=== PATIENT | male | born 1935 | race Two or more races ===

== ENCOUNTER 2016-09-17 13:18 | Outpatient (CLI) | payer MEDICARE, BC ==
[~2016-09-17 13:18] MED LIST: WARF4TAB6 PO
== END 2016-09-17 23:59 | disposition home health service (06) ==
LOC: WOU 13:18
PROVIDERS: ATTEND Podiatrist Foot & Ankle Surgery
DX: T87.81 Dehiscence of amputation stump (principal); I70.262 Atherosclerosis of native arteries of extremities with gangrene, left leg; L97.523 Non-pressure chronic ulcer of other part of left foot with necrosis of muscle; L89.623 Pressure ulcer of left heel, stage 3; C90.01 Multiple myeloma in remission; R60.0 Localized edema; Z86.718 Personal history of other venous thrombosis and embolism; Z86.73 Personal history of transient ischemic attack (TIA), and cerebral infarction without residual deficits; Z79.01 Long term (current) use of anticoagulants; Z79.899 Other long term (current) drug therapy; I10 Essential (primary) hypertension
CPT/HCPCS: 11044; 11047; A6253; A6402

== ENCOUNTER 2016-09-20 13:05 | Outpatient (CLI) | payer MEDICARE, BC | END 2016-09-20 23:59 | disposition home health service (06) | LOC: WOU 13:05 | PROVIDERS: ATTEND Podiatrist Foot & Ankle Surgery | DX: L89.623 Pressure ulcer of left heel, stage 3 (principal); I70.262 Atherosclerosis of native arteries of extremities with gangrene, left leg; L97.521 Non-pressure chronic ulcer of other part of left foot limited to breakdown of skin; Z85.828 Personal history of other malignant neoplasm of skin; I35.8 Other nonrheumatic aortic valve disorders; Z79.01 Long term (current) use of anticoagulants; C90.00 Multiple myeloma not having achieved remission; Z79.899 Other long term (current) drug therapy; Z86.718 Personal history of other venous thrombosis and embolism; Z86.73 Personal history of transient ischemic attack (TIA), and cerebral infarction without residual deficits | CPT/HCPCS: 11042; 11045; 97606; A6402 ==

== ENCOUNTER 2016-09-24 08:35 | Outpatient (CLI) | payer MEDICARE, BC | END 2016-09-24 23:59 | disposition home health service (06) | LOC: EDBD → WOU 08:35 | PROVIDERS: ATTEND Podiatrist Foot & Ankle Surgery | DX: L89.624 Pressure ulcer of left heel, stage 4 (principal); I70.262 Atherosclerosis of native arteries of extremities with gangrene, left leg; L97.524 Non-pressure chronic ulcer of other part of left foot with necrosis of bone; Z86.718 Personal history of other venous thrombosis and embolism; Z79.01 Long term (current) use of anticoagulants; I35.8 Other nonrheumatic aortic valve disorders; Z79.899 Other long term (current) drug therapy; Z95.0 Presence of cardiac pacemaker; Z87.891 Personal history of nicotine dependence; C90.01 Multiple myeloma in remission; Z99.3 Dependence on wheelchair | CPT/HCPCS: 11043; 11044; 11047; A6402 ==

== ENCOUNTER 2016-10-01 13:04 | Emergency (ER) | payer MEDICARE, BC ==
[2016-10-01] MEDS ORDERED: IV SET PRIMARY 1 EA INFUS.SET MC ONE (13:57)
[2016-10-01] MEDS ORDERED: IV NS 0.9% 1,000 ML ONE (13:57)
[2016-10-01] MEDS ORDERED: IV NS 0.9% 1,000 ML BAG IV ONE (14:00)
== END 2016-10-01 15:46 | disposition left against medical advice (07) ==
DX: R55 Syncope and collapse (principal); E86.0 Dehydration; D64.9 Anemia, unspecified; R79.89 Other specified abnormal findings of blood chemistry; G40.909 Epilepsy, unspecified, not intractable, without status epilepticus; I50.9 Heart failure, unspecified; Z95.0 Presence of cardiac pacemaker; Z79.01 Long term (current) use of anticoagulants; Z85.79 Personal history of other malignant neoplasms of lymphoid, hematopoietic and related tissues
CPT/HCPCS: 36415; 70450; 71010; 80048; 80076; 82962; 83735; 84484; 85025; 85730; 93005; 96360; 99285; A4606; J7030

== ENCOUNTER 2016-10-01 15:45 | Outpatient (CLI) | payer MEDICARE, BC | END 2016-10-01 23:59 | disposition home health service (06) | LOC: EDBD → WOU 15:45 | PROVIDERS: ATTEND Podiatrist Foot & Ankle Surgery | DX: L89.624 Pressure ulcer of left heel, stage 4 (principal); I70.262 Atherosclerosis of native arteries of extremities with gangrene, left leg; L97.523 Non-pressure chronic ulcer of other part of left foot with necrosis of muscle; Z87.891 Personal history of nicotine dependence; Z86.73 Personal history of transient ischemic attack (TIA), and cerebral infarction without residual deficits; Z85.828 Personal history of other malignant neoplasm of skin; Z86.718 Personal history of other venous thrombosis and embolism; Z79.01 Long term (current) use of anticoagulants; I35.8 Other nonrheumatic aortic valve disorders; Z79.899 Other long term (current) drug therapy; Z95.5 Presence of coronary angioplasty implant and graft; Z95.0 Presence of cardiac pacemaker; C90.01 Multiple myeloma in remission | CPT/HCPCS: 11042; 11043; A6209; A6402 ==

== ENCOUNTER 2016-10-08 11:31 | Outpatient (CLI) | payer MEDICARE, BC | END 2016-10-08 23:59 | disposition home health service (06) | LOC: WOU 11:31 | PROVIDERS: ATTEND Podiatrist Foot & Ankle Surgery | DX: L89.624 Pressure ulcer of left heel, stage 4 (principal); I70.245 Atherosclerosis of native arteries of left leg with ulceration of other part of foot; L97.524 Non-pressure chronic ulcer of other part of left foot with necrosis of bone; Z95.5 Presence of coronary angioplasty implant and graft; Z95.0 Presence of cardiac pacemaker; I35.8 Other nonrheumatic aortic valve disorders; Z79.01 Long term (current) use of anticoagulants; C90.00 Multiple myeloma not having achieved remission; Z79.899 Other long term (current) drug therapy; Z86.718 Personal history of other venous thrombosis and embolism; T81.31XD Disruption of external operation (surgical) wound, not elsewhere classified, subsequent encounter | CPT/HCPCS: 11044; 11047; 97605; A6209; A6402; A6253 ==

== ENCOUNTER 2016-10-15 13:08 | Outpatient (CLI) | payer MEDICARE, BC | END 2016-10-15 23:59 | disposition home health service (06) | LOC: WOU 13:08 | PROVIDERS: ATTEND Podiatrist Foot & Ankle Surgery | DX: L89.624 Pressure ulcer of left heel, stage 4 (principal); I70.245 Atherosclerosis of native arteries of left leg with ulceration of other part of foot; L97.524 Non-pressure chronic ulcer of other part of left foot with necrosis of bone; C90.01 Multiple myeloma in remission; R60.0 Localized edema; Z87.891 Personal history of nicotine dependence; Z86.718 Personal history of other venous thrombosis and embolism; Z79.01 Long term (current) use of anticoagulants; I35.8 Other nonrheumatic aortic valve disorders; Z95.0 Presence of cardiac pacemaker; Z95.5 Presence of coronary angioplasty implant and graft; Z89.432 Acquired absence of left foot | CPT/HCPCS: 11042; 15275; A6209; A6402 ×2; Q4110 ==

== ENCOUNTER 2016-10-22 13:15 | Outpatient (CLI) | payer MEDICARE, BC | END 2016-10-22 23:59 | disposition home or self-care (01) | LOC: WOU 13:15 | PROVIDERS: ATTEND Podiatrist Foot & Ankle Surgery | DX: T87.81 Dehiscence of amputation stump (principal); I70.262 Atherosclerosis of native arteries of extremities with gangrene, left leg; L97.524 Non-pressure chronic ulcer of other part of left foot with necrosis of bone; L89.624 Pressure ulcer of left heel, stage 4; Z89.432 Acquired absence of left foot; C90.01 Multiple myeloma in remission; R60.0 Localized edema; Z87.891 Personal history of nicotine dependence; Z86.718 Personal history of other venous thrombosis and embolism; I35.8 Other nonrheumatic aortic valve disorders; Z79.01 Long term (current) use of anticoagulants; Z79.899 Other long term (current) drug therapy; Z86.73 Personal history of transient ischemic attack (TIA), and cerebral infarction without residual deficits | CPT/HCPCS: 11042; 11044; 11047; 97605-TC; A6402 ==

== ENCOUNTER 2016-10-29 13:13 | Outpatient (CLI) | payer MEDICARE, BC | END 2016-10-29 23:59 | disposition home health service (06) | LOC: WOU 13:13 | PROVIDERS: ATTEND Podiatrist Foot & Ankle Surgery | DX: L89.624 Pressure ulcer of left heel, stage 4 (principal); I70.262 Atherosclerosis of native arteries of extremities with gangrene, left leg; L97.524 Non-pressure chronic ulcer of other part of left foot with necrosis of bone; C90.01 Multiple myeloma in remission; R60.0 Localized edema; Z87.891 Personal history of nicotine dependence; Z86.718 Personal history of other venous thrombosis and embolism; Z86.73 Personal history of transient ischemic attack (TIA), and cerebral infarction without residual deficits; I35.8 Other nonrheumatic aortic valve disorders; Z79.01 Long term (current) use of anticoagulants; Z85.828 Personal history of other malignant neoplasm of skin | CPT/HCPCS: 11042; 15275; 97605-TC; A6402 ==

== ENCOUNTER 2016-11-12 13:05 | Outpatient (CLI) | payer MEDICARE, BC | END 2016-11-12 23:59 | disposition home health service (06) | LOC: WOU 13:05 | PROVIDERS: ATTEND Podiatrist Foot & Ankle Surgery | DX: I70.244 Atherosclerosis of native arteries of left leg with ulceration of heel and midfoot (principal); L97.424 Non-pressure chronic ulcer of left heel and midfoot with necrosis of bone; L89.624 Pressure ulcer of left heel, stage 4; C90.01 Multiple myeloma in remission; T81.31XD Disruption of external operation (surgical) wound, not elsewhere classified, subsequent encounter; R60.0 Localized edema; Z89.432 Acquired absence of left foot; Z86.73 Personal history of transient ischemic attack (TIA), and cerebral infarction without residual deficits; Z86.718 Personal history of other venous thrombosis and embolism; Z87.891 Personal history of nicotine dependence; I35.8 Other nonrheumatic aortic valve disorders; Z79.01 Long term (current) use of anticoagulants; Z95.5 Presence of coronary angioplasty implant and graft | CPT/HCPCS: 11042; 15275; A6402; Q4110 ==

== ENCOUNTER 2016-11-19 12:50 | Outpatient (CLI) | payer MEDICARE, BC | END 2016-11-19 23:59 | disposition home health service (06) | LOC: WOU 12:50 | PROVIDERS: ATTEND Surgery | DX: I70.262 Atherosclerosis of native arteries of extremities with gangrene, left leg (principal); L97.524 Non-pressure chronic ulcer of other part of left foot with necrosis of bone; R60.0 Localized edema; L89.624 Pressure ulcer of left heel, stage 4; Z86.73 Personal history of transient ischemic attack (TIA), and cerebral infarction without residual deficits; Z86.718 Personal history of other venous thrombosis and embolism; C90.00 Multiple myeloma not having achieved remission; Z79.01 Long term (current) use of anticoagulants; Z79.899 Other long term (current) drug therapy; I35.8 Other nonrheumatic aortic valve disorders; Z85.828 Personal history of other malignant neoplasm of skin; Z95.0 Presence of cardiac pacemaker; Z95.5 Presence of coronary angioplasty implant and graft; I74.3 Embolism and thrombosis of arteries of the lower extremities | CPT/HCPCS: 11044; 97605-TC; A6253; A6402 ==

== ENCOUNTER 2016-11-26 12:55 | Outpatient (CLI) | payer MEDICARE, BC | END 2016-11-26 23:59 | disposition home health service (06) | LOC: WOU 12:55 | PROVIDERS: ATTEND Podiatrist Foot & Ankle Surgery | DX: L89.624 Pressure ulcer of left heel, stage 4 (principal); I70.262 Atherosclerosis of native arteries of extremities with gangrene, left leg; L97.524 Non-pressure chronic ulcer of other part of left foot with necrosis of bone; Z87.891 Personal history of nicotine dependence; Z86.73 Personal history of transient ischemic attack (TIA), and cerebral infarction without residual deficits; Z86.718 Personal history of other venous thrombosis and embolism; C90.00 Multiple myeloma not having achieved remission; Z79.01 Long term (current) use of anticoagulants; Z79.899 Other long term (current) drug therapy; I35.8 Other nonrheumatic aortic valve disorders; Z85.828 Personal history of other malignant neoplasm of skin; Z95.0 Presence of cardiac pacemaker; Z95.5 Presence of coronary angioplasty implant and graft; I74.3 Embolism and thrombosis of arteries of the lower extremities | CPT/HCPCS: 11044; 11047; 97605; A6402 ==

== ENCOUNTER 2016-12-03 12:45 | Outpatient (CLI) | payer MEDICARE, BC | END 2016-12-03 23:59 | disposition home health service (06) | LOC: WOU 12:45 | PROVIDERS: ATTEND Surgery | DX: I70.262 Atherosclerosis of native arteries of extremities with gangrene, left leg (principal); L97.524 Non-pressure chronic ulcer of other part of left foot with necrosis of bone; Z87.891 Personal history of nicotine dependence; Z86.73 Personal history of transient ischemic attack (TIA), and cerebral infarction without residual deficits; Z86.718 Personal history of other venous thrombosis and embolism; C90.00 Multiple myeloma not having achieved remission; Z79.01 Long term (current) use of anticoagulants; Z79.899 Other long term (current) drug therapy; Z85.828 Personal history of other malignant neoplasm of skin; F60.0 Paranoid personality disorder; T81.31XD Disruption of external operation (surgical) wound, not elsewhere classified, subsequent encounter; Z95.0 Presence of cardiac pacemaker; Z89.432 Acquired absence of left foot; Z95.5 Presence of coronary angioplasty implant and graft | CPT/HCPCS: 11044; 11047; 87070; 87077; A6452 ==

== ENCOUNTER 2016-12-06 11:20 | Outpatient (CLI) | payer MEDICARE, BC | END 2016-12-06 23:59 | disposition home health service (06) | LOC: WOU 11:20 | PROVIDERS: ATTEND Podiatrist Foot & Ankle Surgery | DX: I70.244 Atherosclerosis of native arteries of left leg with ulceration of heel and midfoot (principal); L97.424 Non-pressure chronic ulcer of left heel and midfoot with necrosis of bone; T87.81 Dehiscence of amputation stump; Z99.3 Dependence on wheelchair; Z86.73 Personal history of transient ischemic attack (TIA), and cerebral infarction without residual deficits; Z87.891 Personal history of nicotine dependence; C90.01 Multiple myeloma in remission; Z79.899 Other long term (current) drug therapy; Z85.828 Personal history of other malignant neoplasm of skin; Z86.718 Personal history of other venous thrombosis and embolism; Z79.01 Long term (current) use of anticoagulants; I38 Endocarditis, valve unspecified; Z95.0 Presence of cardiac pacemaker | CPT/HCPCS: 11044; 11047; A6402; A6452 ==

== ENCOUNTER 2016-12-10 12:50 | Outpatient (CLI) | payer MEDICARE, BC | END 2016-12-10 23:59 | disposition home health service (06) | LOC: WOU 12:50 | PROVIDERS: ATTEND Podiatrist Foot & Ankle Surgery | DX: I70.262 Atherosclerosis of native arteries of extremities with gangrene, left leg (principal); L97.523 Non-pressure chronic ulcer of other part of left foot with necrosis of muscle; T81.31XD Disruption of external operation (surgical) wound, not elsewhere classified, subsequent encounter; S61.412A Laceration without foreign body of left hand, initial encounter; Y92.89 Other specified places as the place of occurrence of the external cause; X58.XXXA Exposure to other specified factors, initial encounter; C90.01 Multiple myeloma in remission; R60.0 Localized edema; Z89.432 Acquired absence of left foot; Z87.891 Personal history of nicotine dependence; Z86.73 Personal history of transient ischemic attack (TIA), and cerebral infarction without residual deficits; Z86.718 Personal history of other venous thrombosis and embolism; Z79.01 Long term (current) use of anticoagulants; Z95.5 Presence of coronary angioplasty implant and graft; I35.8 Other nonrheumatic aortic valve disorders; Z95.0 Presence of cardiac pacemaker; L57.0 Actinic keratosis; I50.9 Heart failure, unspecified | CPT/HCPCS: 15275; A6402; G0463; Q4110 ==

== ENCOUNTER 2016-12-13 13:30 | Outpatient (CLI) | payer MEDICARE, BC | END 2016-12-13 23:59 | disposition home health service (06) | LOC: WOU 13:30 | PROVIDERS: ATTEND Podiatrist Foot & Ankle Surgery | DX: I70.262 Atherosclerosis of native arteries of extremities with gangrene, left leg (principal); L97.522 Non-pressure chronic ulcer of other part of left foot with fat layer exposed; Z87.891 Personal history of nicotine dependence; Z86.73 Personal history of transient ischemic attack (TIA), and cerebral infarction without residual deficits; Z86.718 Personal history of other venous thrombosis and embolism; Z85.828 Personal history of other malignant neoplasm of skin; I50.9 Heart failure, unspecified; L57.0 Actinic keratosis; I35.8 Other nonrheumatic aortic valve disorders; S61.412D Laceration without foreign body of left hand, subsequent encounter; X58.XXXD Exposure to other specified factors, subsequent encounter; C90.01 Multiple myeloma in remission; T81.31XD Disruption of external operation (surgical) wound, not elsewhere classified, subsequent encounter | CPT/HCPCS: 97605; A6402; A6452; G0463 ==

== ENCOUNTER 2016-12-17 08:45 | Outpatient (CLI) | payer MEDICARE, BC | END 2016-12-17 23:59 | disposition home health service (06) | LOC: WOU 08:45 | PROVIDERS: ATTEND Podiatrist Foot & Ankle Surgery | DX: I70.262 Atherosclerosis of native arteries of extremities with gangrene, left leg (principal); L97.524 Non-pressure chronic ulcer of other part of left foot with necrosis of bone; I74.3 Embolism and thrombosis of arteries of the lower extremities; R60.0 Localized edema; T87.81 Dehiscence of amputation stump; C90.01 Multiple myeloma in remission; Z86.73 Personal history of transient ischemic attack (TIA), and cerebral infarction without residual deficits; Z86.718 Personal history of other venous thrombosis and embolism; Z87.891 Personal history of nicotine dependence; I35.8 Other nonrheumatic aortic valve disorders; Z79.01 Long term (current) use of anticoagulants; Z95.5 Presence of coronary angioplasty implant and graft | CPT/HCPCS: 15275; A6402; A6452; Q4131 ==

== ENCOUNTER 2016-12-24 11:42 | Outpatient (CLI) | payer MEDICARE, BC | END 2016-12-24 23:59 | disposition home health service (06) | LOC: WOU 11:42 | PROVIDERS: ATTEND Podiatrist Foot & Ankle Surgery | DX: I70.262 Atherosclerosis of native arteries of extremities with gangrene, left leg (principal); L97.523 Non-pressure chronic ulcer of other part of left foot with necrosis of muscle; Z87.891 Personal history of nicotine dependence; T81.31XD Disruption of external operation (surgical) wound, not elsewhere classified, subsequent encounter; Z86.718 Personal history of other venous thrombosis and embolism; C90.00 Multiple myeloma not having achieved remission; Z79.899 Other long term (current) drug therapy; Z95.0 Presence of cardiac pacemaker; I35.8 Other nonrheumatic aortic valve disorders; Z79.01 Long term (current) use of anticoagulants; Z86.73 Personal history of transient ischemic attack (TIA), and cerebral infarction without residual deficits; Z85.828 Personal history of other malignant neoplasm of skin; Z95.5 Presence of coronary angioplasty implant and graft; Z89.432 Acquired absence of left foot | CPT/HCPCS: 11043; A6402; A6452 ==

== ENCOUNTER 2017-02-21 10:52 | Outpatient (CLI) | payer MEDICARE, BC | END 2017-02-21 23:59 | disposition home health service (06) | LOC: WOU 10:52 | PROVIDERS: ATTEND Podiatrist Foot & Ankle Surgery | DX: T87.81 Dehiscence of amputation stump (principal); I70.245 Atherosclerosis of native arteries of left leg with ulceration of other part of foot; L97.524 Non-pressure chronic ulcer of other part of left foot with necrosis of bone; M86.672 Other chronic osteomyelitis, left ankle and foot; C90.01 Multiple myeloma in remission; Z86.73 Personal history of transient ischemic attack (TIA), and cerebral infarction without residual deficits; Z87.891 Personal history of nicotine dependence; Z95.2 Presence of prosthetic heart valve; Z79.01 Long term (current) use of anticoagulants; Z86.718 Personal history of other venous thrombosis and embolism; I74.3 Embolism and thrombosis of arteries of the lower extremities | CPT/HCPCS: 15275; A6402 ==

== ENCOUNTER 2017-03-04 09:35 | Outpatient (CLI) | payer MEDICARE, BC | END 2017-03-04 23:59 | disposition home health service (06) | LOC: WOU 09:35 | PROVIDERS: ATTEND Podiatrist Foot & Ankle Surgery | DX: I70.245 Atherosclerosis of native arteries of left leg with ulceration of other part of foot (principal); T87.81 Dehiscence of amputation stump; M86.672 Other chronic osteomyelitis, left ankle and foot; R60.0 Localized edema; C90.01 Multiple myeloma in remission; L97.524 Non-pressure chronic ulcer of other part of left foot with necrosis of bone; I38 Endocarditis, valve unspecified; Z79.01 Long term (current) use of anticoagulants; Z95.0 Presence of cardiac pacemaker; Z95.5 Presence of coronary angioplasty implant and graft; Z86.73 Personal history of transient ischemic attack (TIA), and cerebral infarction without residual deficits; Z85.828 Personal history of other malignant neoplasm of skin; Z87.891 Personal history of nicotine dependence; I74.3 Embolism and thrombosis of arteries of the lower extremities | CPT/HCPCS: 11044; A6402 ==

== ENCOUNTER 2017-03-14 10:11 | Outpatient (CLI) | payer MEDICARE, BC | END 2017-03-14 23:59 | disposition home health service (06) | LOC: WOU 10:11 | PROVIDERS: ATTEND Podiatrist Foot & Ankle Surgery | DX: I70.245 Atherosclerosis of native arteries of left leg with ulceration of other part of foot (principal); T87.81 Dehiscence of amputation stump; M86.672 Other chronic osteomyelitis, left ankle and foot; R60.0 Localized edema; C90.01 Multiple myeloma in remission; L97.524 Non-pressure chronic ulcer of other part of left foot with necrosis of bone; Z95.5 Presence of coronary angioplasty implant and graft; Z95.0 Presence of cardiac pacemaker; Z79.01 Long term (current) use of anticoagulants; Z86.73 Personal history of transient ischemic attack (TIA), and cerebral infarction without residual deficits; Z85.828 Personal history of other malignant neoplasm of skin; Z87.891 Personal history of nicotine dependence; Z86.718 Personal history of other venous thrombosis and embolism | CPT/HCPCS: 11044; A6402 ==

== ENCOUNTER 2017-04-23 10:28 | Outpatient (CLI) | payer MEDICARE, BC | END 2017-04-23 23:59 | disposition home or self-care (01) | LOC: WOU 10:28 | PROVIDERS: ATTEND Specialist | DX: T86.828 Other complications of skin graft (allograft) (autograft) (principal); T87.81 Dehiscence of amputation stump; T87.54 Necrosis of amputation stump, left lower extremity; L89.620 Pressure ulcer of left heel, unstageable; Z86.73 Personal history of transient ischemic attack (TIA), and cerebral infarction without residual deficits; Z87.891 Personal history of nicotine dependence; Z85.828 Personal history of other malignant neoplasm of skin; Z86.718 Personal history of other venous thrombosis and embolism; Z79.01 Long term (current) use of anticoagulants; Z95.5 Presence of coronary angioplasty implant and graft; Z95.820 Peripheral vascular angioplasty status with implants and grafts; C90.01 Multiple myeloma in remission; R60.0 Localized edema; I70.245 Atherosclerosis of native arteries of left leg with ulceration of other part of foot; L97.529 Non-pressure chronic ulcer of other part of left foot with unspecified severity; M86.672 Other chronic osteomyelitis, left ankle and foot | CPT/HCPCS: A6209; A6402; G0463 ==

== ENCOUNTER 2017-05-01 13:29 | Outpatient (CLI) | payer MEDICARE, BC | END 2017-05-01 23:59 | disposition home or self-care (01) | LOC: WOU 13:29 | PROVIDERS: ATTEND Specialist | DX: T86.828 Other complications of skin graft (allograft) (autograft) (principal); T87.54 Necrosis of amputation stump, left lower extremity; L89.620 Pressure ulcer of left heel, unstageable; Z86.73 Personal history of transient ischemic attack (TIA), and cerebral infarction without residual deficits; Z87.891 Personal history of nicotine dependence; Z85.828 Personal history of other malignant neoplasm of skin; Z86.718 Personal history of other venous thrombosis and embolism; Z79.01 Long term (current) use of anticoagulants; Z95.5 Presence of coronary angioplasty implant and graft; Z95.820 Peripheral vascular angioplasty status with implants and grafts; C90.01 Multiple myeloma in remission; R60.0 Localized edema; I70.245 Atherosclerosis of native arteries of left leg with ulceration of other part of foot; L97.529 Non-pressure chronic ulcer of other part of left foot with unspecified severity; M86.672 Other chronic osteomyelitis, left ankle and foot | CPT/HCPCS: A6402; G0463 ==

== ENCOUNTER 2017-05-09 10:45 | Outpatient (CLI) | payer MEDICARE, BC | END 2017-05-09 23:59 | disposition home or self-care (01) | LOC: WOU 10:45 | PROVIDERS: ATTEND Specialist | DX: I70.212 Atherosclerosis of native arteries of extremities with intermittent claudication, left leg (principal) | CPT/HCPCS: 93925-TC ==